=== PATIENT | female | born 1935 | race Caucasian/White ===

== ENCOUNTER 2023-12-06 09:57 | Day surgery (SDC) | payer OTHER, SELFPAY ==
[2023-11-29 10:26] VITALS: BMI 28.1
[2023-11-29 11:11] LABS: INR 1.22; PT 15.2 Sec (11.4-14.6)
[2023-11-29 11:28] LABS: ALT (SGPT) 18 U/L (0-35); AST (SGOT) 30 U/L (14-36); Albumin 4.5 g/dl (3.5-5.0); Alkaline Phosphatase 77 U/L (38-126); Blood Urea Nitrogen 27 mg/dl (7-17); Calcium 9.9 mg/dl (8.4-10.2); Carbon Dioxide 28 mmol/L (22-30); Chloride 100 mmol/L (98-107); Estimated Creatinine Clearance 42 ml/min; Glucose 74 mg/dl (70-99); Magnesium 2.3 mg/dl (1.6-2.3); Potassium 4.5 mmol/L (3.5-5.1); Sodium 138 mmol/L (135-145); Total Bilirubin 0.4 mg/dl (0.2-1.3); Total Protein 7.1 g/dl (6.3-8.2); eGFR > 60.00
[2023-11-29 11:33] LABS: % Basophils 1.2 % (0-2); % Eosinophils 2.4 % (0-6); % Immature Granulocytes 0.1 % (0-0.5); % Lymphocytes 20.1 % (20.5-51.1); % Monocytes 10.6 % (1.7-9.3); % Neutrophils 65.6 % (42.2-75.2); Absolute Basophils 0.1 10^3/uL (0-0.2); Absolute Eosinophils 0.2 10^3/uL (0-0.7); Absolute Lymphocytes 1.5 10^3/uL (1.2-3.4); Absolute Monocytes 0.8 10^3/uL (0.1-0.6); Hematocrit 39.2 % (37.0-47.0); Hemoglobin 12.2 g/dL (12.0-16.0); Mean Corp Hgb Conc. 31.1 g/dL (33.0-37.0); Mean Corpuscular Hgb 28.2 pg (27.0-31.0); Mean Corpuscular Volume 90.5 fL (81.0-99.0); Nucleated Red Blood Cells % 0 %; Platelet Count 242 10^3/uL (130-400); Red Blood Cell Count 4.33 10^6/uL (4.20-5.40); Red Cell Dist. Width 13.5 % (11.5-14.5); White Blood Cell Count 7.7 10^3/uL (4.8-10.8)
[2023-12-06] VITALS (12 sets, daily range): BP systolic 96–147; BP diastolic 46–65; BMI 29.8
--- NOTE | 2023-12-06 11:23 | PTCARENOTE ---
Patient in bay 8 in recovery ccl. Patient verbalizes c/o 12/10 chronic lower back pain. Patient repositioned in bed. Feet elevated on pillow. warm blanket applied to lower back. Patient verbalizes pain now at 8/10. Patient comfortable at this
time.
[2023-12-06] MEDS: VANCOCIN 200 IV (13:23)
--- NOTE | 2023-12-06 16:17 | PTCARENOTE ---
Rec'd Pt post PPM placement, drowsy but awakens easily to verbal stimuli, denies pain. L chest wall dsg D+I, pressure dsg over aquacell. VSS
--- NOTE | 2023-12-06 16:31 | CM ---
Chart reviewed. Patient is independent of ADLS, lives with her daughter and grandson in a [address], [address], 0 [address]. Patient is not current with VN, but is interested. Referral sent to [facility]. Plan is for the patient to return home with [facility]
--- NOTE | 2023-12-06 16:39 | ITS.CL.PACE ---
Hydrology Technician - Pacemaker Implant
Pacemaker Implant
Procedure Report:
PACEMAKER IMPLANT REPORT
Primary Care Provider: Dr Ryder Cherry
Primary nursery laborer: Dr Monica Gruber
Date of Procedure: December 06, 2023
Procedure:
Implantation of dual-chamber permanent pacemaker utilizing the left bundle branch for conduction system pacing
Removal of implanted loop recorder
Indication/Diagnosis:
Non-reversible symptomatic bradycardia due to sinus node dysfunction.
HISTORY:
She has paroxysmal atrial fibrillation and has had episodes of dizziness and even near syncope. Evaluation of her implanted loop recorder correlates conversion pauses to her symptoms. She requires calcium channel blockers, diltiazem. This was for
rate control of atrial fibrillation sometimes with rapid ventricular rates and for supraventricular tachycardia. She has been referred for permanent pacemaker implantation for treatment of symptomatic sick sinus syndrome.
After informed consent was obtained, 'time out' was called and confirmed, the patient was prepped and draped in a sterile fashion. Lidocaine with epi was used for local anesthesia. Central venous access was obtained via subclavian venipuncture. An
incision was made along the left chest and a pre-pectoral pocket was formed. Using a Seldinger technique and peel-away sheaths, the pacing leads were placed under fluoroscopic guidance.
Fluoroscopy was used to determine likely anatomic site for left bundle branch pacing. The Medtronic C315 sheath was used to deliver the Medtronic 3830 Selectsecure pacing lead with the helix exposed just exposed from the sheath tip during continuous
monitoring when pacemapping the septum during gentle clockwise rotation to obtain a paced QRS morphology of a W pattern in lead V1. Once the suspected optimal site was identified, lead deployment was performed with several rapid rotations as paced
QRS morphology was intermittently monitored until a paced QRS complex in lead V1 demonstrated development of an R wave (Qr). Reduction in pacing output resulted in a change in morphology, larger R wave.
Unipolar pacing impedance initially increased and then dropped by approximately 200 ohms suggesting it had reached the left ventricular subendocardial.
Stable VEgm injury current is present throughout lead position and at end of case.
Final unipolar pacing impedance is 1100 Ohms
Unipolar pacing threshold is stable at 1.5 V @ 0.4 ms.
Final conduction system paced QRS complex duration is 85 ms
LVAT is 77 ms and peak V5 -> peak V1 timing is 26 ms
Right atrial lead was placed at the RAA.
Once testing (see below) showed adequate and stable function, the leads were secured using the suture sleeves. The pocket was liberally irrigated with antibiotic solution. The leads were connected to the generator header and the leads and
generator were placed within the pocket. Fluoroscopy confirmed stable lead position. The pocket was closed in the typical fashion.
IMPLANTS:
Medtronic [id number], SN: [id number], Left Pectoral
RA: Medtronic 5076-45, SN: [id number], RAA
RV: Medtronic 3830 , SN:[id number], Interventricular septum at LBB
DEVICE TESTING:
Sensing: RA 1.8 mV, RV 10 mV
Capture: RA 0.6 V@0.4ms, RV 1.3 V@0.4ms
Ohms: RA 470, RV 980
FINAL PROGRAMMING
[place] Pacing: AAIR+ 50-130 ppm
COMPLICATIONS:
None
CONCLUSIONS:
1: Successful implant of dual chamber permanent pacemaker utilizing Left Bundle Branch conduction system capture for pacing. While it is possible she may eventually require ventricular pacing, at present active ventricular pacing is not indicated
and she will be programmed MVP mode.
RECOMMENDATIONS:
1. Post-op care (tele, CXR, IV abx)
2. In-Office wound check in 5-7 days
3. Resume diltiazem at outpatient dose (short acting diltiazem 60 mg twice daily) and reassess symptoms now that pacemaker is implanted. There can be consideration for using extended release version if she tolerates well.
Copy to:
Dr Ryder Cherry
Dr Monica Gruber
--- NOTE | 2023-12-06 16:51 | ITS.CL.IMPLP ---
Teacher Tutor - Implant Loop
Implant Loop
Procedure Report:
LINQ IMPLANTED MONITOR REMOVAL
Date of Procedure: December 06, 2023
Primary Care Provider: Dr Ryder Cherry
Primary radiosonde operator: Dr Monica Gruber
PROCEDURES:
1. Removal of implanted loop recorder
INDICATION FOR PROCEDURE:
Loop recorder has assisted in making the diagnosis of symptomatic sick sinus syndrome. Permanent pacemaker has been implanted. There is no longer need for loop recorder monitoring.
Lidocaine with epi was used for local anesthesia. An incision was made along the prior incision and the Linq monitor was carefully dissected from the pocket. The pocket was liberally irrigated with antibiotic solution. The pocket was closed in
the typical fashion.
COMPLICATIONS:
None
CONCLUSIONS:
1. Removal of implanted loop recorder.
RECOMMENDATIONS:
In-Office wound check in 7-14 days.
Copy to:
Dr Ryder Cherry
Dr Monica Gruber
[2023-12-06] MEDS: TYLENOL 650 MG PO ×2 (18:44→23:11)
--- NOTE | 2023-12-06 19:15 | PTCARENOTE ---
NSR. VSS. RA. OOB in chair. LUE in immobilizer s/p PPM. DTV. Assessment per nursing flowsheet
--- NOTE | 2023-12-06 19:21 | PTCARENOTE ---
Pt c/o L pacer site incisional pain, med with Tylenol 650 mg PO as ordered.
[2023-12-06] MEDS: CARDIZEM 60 MG PO (19:59)
[2023-12-06] MEDS: NORVASC 2.5 MG PO (21:47)
[2023-12-06] MEDS: PRAVACHOL 40 MG PO (21:47)
[2023-12-07 04:09] VITALS: BP 126/74
[2023-12-07] MEDS: TYLENOL 650 MG PO ×2 (04:12→09:17)
[2023-12-07 04:59] LABS: Hematocrit 32.5 % (37.0-47.0); Hemoglobin 10.7 g/dL (12.0-16.0); Mean Corp Hgb Conc. 32.9 g/dL (33.0-37.0); Mean Corpuscular Volume 88.1 fL (81.0-99.0); Mean Platelet Volume 12.2 fL (7.4-10.4); Platelet Count 188 10^3/uL (130-400); Red Blood Cell Count 3.69 10^6/uL (4.20-5.40); Red Cell Dist. Width 14.1 % (11.5-14.5); White Blood Cell Count 6.7 10^3/uL (4.8-10.8)
[2023-12-07 06:41] LABS: Blood Urea Nitrogen 17 mg/dl (7-17); Calcium 9.1 mg/dl (8.4-10.2); Carbon Dioxide 27 mmol/L (22-30); Chloride 108 mmol/L (98-107); Estimated Creatinine Clearance 54 ml/min; Glucose 96 mg/dl (70-99); Magnesium 2.1 mg/dl (1.6-2.3); Potassium 4.2 mmol/L (3.5-5.1); Sodium 136 mmol/L (135-145); eGFR > 60.00
[2023-12-07 06:46] VITALS: BP 124/58
--- NOTE | 2023-12-07 08:00 | PTCARENOTE ---
Rec'd pt AAOx3 from prev nsg shift. Pt reporting 7-8/10 L upper chest pain at her new PPM insertion site. PRN Tylenol administered as ordered. Pt w/no SOB or other pain noted. MD in to see pt & LUE immobilizer removed. This RN reiterated activity
restrictions for new PPM & pt verbalized her understanding. VS stable. Pt w/call munguia within reach & no addtl needs at this time. Plan of care ongoing.
--- NOTE | 2023-12-07 08:02 | W.PN.CARDCBS ---
Addendum entered and electronically signed by Chan López MD 12/07/23 11:25:
Patient seen and examined
Agree with FLY WORKER note and assessment
Agree with FLY WORKER plan
Examination:
Chest x-ray reviewed with stable lead positions
Appropriate atrial and ventricular sensing on telemetry
Site clean dry intact without hematoma
Cor regular
Lungs clear
Remainder of examination per FLY WORKER note
IMPRESSION:
SSS/Non reversible symptomatic bradycardia
PAF w/conversion pauses up to 3 seconds
s/p DC PPM implant with Linq explant, 12/06/23
SVT/Palpitations
HTN
HLD
Non obstructive CAD
mild YAMEL
PVD
MILES
LITTLE RIVER
IBS/Polyps
Raynauds
SS/OA/DDD
Chronic back pain
PLAN:
Tele- APacing with underlying sinus rhythm
Device site stable
Post CXR w/stable lead position, no pneumothorax
Activity restrictions reviewed
Resume diltiazem ER 60mg BID
[id number]- eliquis held post procedure- OK to resume this evening at usual time
Incision check next week at [facility]
Home today
Original Note:
Today's Communication / Plan
-
Incision check next week
home today
Impression / Plan
-
PCP: Ryder Cherry MD
CDY: Monica Gruber MD
88 y/o, PMH sig for PAF with episodes of dizziness and near syncope. A linq was implanted 01/2022 and a recent review showed AF with 3 second conversion pauses, which correlated with symptoms. Diltiazem was placed on hold.
Presented to EP lab, s/p DC PPM implant with linq implant.
IMPRESSION:
SSS/Non reversible symptomatic bradycardia
PAF w/conversion pauses up to 3 seconds
s/p DC PPM implant with Linq explant, 12/06/23
SVT/Palpitations
HTN
HLD
Non obstructive CAD
mild YAMEL
PVD
MILES
LITTLE RIVER
IBS/Polyps
Raynauds
SS/OA/DDD
Chronic back pain
PLAN:
Tele- APacing with underlying sinus rhythm
Device site stable
Post CXR w/stable lead position, no pneumothorax
Activity restrictions reviewed
Resume diltiazem ER 60mg BID
[id number]- eliquis held post procedure- OK to resume this evening at usual time
Incision check next week at [facility]
Home today
Progress Note - Distribution Spec
Subjective
Date of Service: December 07, 2023
Denies cp/palps/dyspnea
incisional pain relieved with tylenol
chronic lower back pain improves with repositioning overnight- takes percocet at home- has not requested any while here
oob ambulating
Objective
Labs:
12/07/23 04:10
12/07/23 05:47
Labs
Hgb 10.7 g/dL (12.0-16.0) L 12/07/23 04:10
Hct 32.5 % (37.0-47.0) L 12/07/23 04:10
Plt Count 188 10^3/uL (130-400) 12/07/23 04:10
PT 15.2 Sec (11.4-14.6) H 11/29/23 10:48
INR 1.22 11/29/23 10:48
Sodium 136 mmol/L (135-145) 12/07/23 05:47
Potassium 4.2 mmol/L (3.5-5.1) 12/07/23 05:47
BUN 17 mg/dl (7-17) 12/07/23 05:47
Creatinine 0.7 mg/dL (0.6-1.0) 12/07/23 05:47
Glucose 96 mg/dl (70-99) 12/07/23 05:47
Vital Signs and I&O:
Vital Signs
Temp Pulse Resp BP Pulse Ox
97.5 F 76 14 126/74 97
12/07/23 06:47 12/07/23 04:09 12/07/23 06:47 12/07/23 04:09 12/07/23 06:47
Vital Signs
Temp Pulse Resp BP Pulse Ox
97.5 F 76 14 126/74 97
12/07/23 06:47 12/07/23 04:09 12/07/23 06:47 12/07/23 04:09 12/07/23 06:47
Intake & Output
12/05/23 12/06/23 12/07/23 12/08/23
06:59 06:59 06:59 06:59
Intake Total 480 / 480
Output Total 350 / 350
Balance 130 / 130
Physical Exam
Physical Exam
AAOx3, MAEE 5/5
RRR S1 S2 no murmurs
CTA bilat, non labored
Left ACW aquacel dressing CDI, no ht/bleeding
Small linq site with steri strips intact, no ht/bleeding
soft abd, + bs
bilat extremities w/palpable distal pulses, no edema
[2023-12-07 08:06] VITALS: BMI 29.8
--- NOTE | 2023-12-07 08:55 | W.DS.TRANS ---
DC Summary - Dowel Maker
-
Discharge Instructions:
Sleep Apnea Risk Low
Discharge Diagnosis/Procedures Pacemaker implant, linq explant
Diet Low Cholesterol
Driving Restrictions No driving for 1 week
Bathing Restrictions OK to Shower
Instructions:
Stand-Alone Forms: DC Inst - Implanted Device
Changes to Home Medications: Yes
Discharge Medications:
DC Medications w/original date entered in Slide
coenzyme Q10 200 mg capsule (Co Q-10) 200 mg PO DAILY 01/19/22
ezetimibe 10 mg tablet 10 mg PO DAILY 01/19/22
pravastatin 40 mg tablet 40 mg PO HS 01/19/22
vitamins A,C,A-piqy-jtosuf 4,296 mcg-226 mg-90 mg capsule (PreserVision AREDS) 1 cap PO BID 01/19/22
cholecalciferol (vitamin D3) 125 mcg (5,000 unit) tablet (Vitamin D3) 125 mcg PO DAILY 11/24/23
oxycodone-acetaminophen 5 mg-325 mg tablet 1 tab PO Q6HPRN PRN pain 11/24/23
turmeric root extract 500 mg capsule 500 mg PO DAILY 11/24/23
amlodipine 2.5 mg tablet 2.5 mg PO HS 11/29/23
apixaban 5 mg tablet 5 mg PO BID 11/29/23
magnesium 500 mg tablet 1,000 mg PO HS 11/29/23
diltiazem HCl 60 mg capsule,extended release 12 hr 60 mg PO BID 12/06/23
Home Medication Changes
RESUME: diltiazem
Pending Results: No
[2023-12-07] MEDS: ZETIA 10 MG PO (09:16)
[2023-12-07] MEDS: CARDIZEM 60 MG PO (09:17)
[2023-12-07 11:17] VITALS: BP 123/58
--- NOTE | 2023-12-07 11:25 | PTCARENOTE ---
Pt discharged to home w/daughter providing transportation. Pt's IV line & telemetry pack removed. Pt left w/instructions & personal belongings from the room. Pt transported out by staff via wheelchair.
== END 2023-12-07 11:54 | disposition home or self-care (01) ==
LOC: CATH 09:57
PROVIDERS: Nurse Practitioner; ATTENDING PHYSICIAN Internal Medicine Cardiovascular Disease; FAMILY PHYSICIAN Family Medicine; OTHER PHYSICIAN Internal Medicine Cardiovascular Disease
DX: I49.5 Sick sinus syndrome (principal); Z09 Encounter for follow-up examination after completed treatment for conditions other than malignant neoplasm; I10 Essential (primary) hypertension; E78.5 Hyperlipidemia, unspecified; I25.10 Atherosclerotic heart disease of native coronary artery without angina pectoris; I65.29 Occlusion and stenosis of unspecified carotid artery; I47.10 Supraventricular tachycardia, unspecified; I48.0 Paroxysmal atrial fibrillation; G47.33 Obstructive sleep apnea (adult) (pediatric); Z86.010 Personal history of colon polyps; K58.9 Irritable bowel syndrome, unspecified; I73.00 Raynaud's syndrome without gangrene; G62.9 Polyneuropathy, unspecified; G43.909 Migraine, unspecified, not intractable, without status migrainosus; M48.00 Spinal stenosis, site unspecified; M19.90 Unspecified osteoarthritis, unspecified site; G89.29 Other chronic pain; H35.30 Unspecified macular degeneration; Z85.820 Personal history of malignant melanoma of skin; F41.9 Anxiety disorder, unspecified; F43.10 Post-traumatic stress disorder, unspecified; H91.93 Unspecified hearing loss, bilateral; Z87.891 Personal history of nicotine dependence; Z79.01 Long term (current) use of anticoagulants; R42 Dizziness and giddiness; R55 Syncope and collapse
CPT/HCPCS: 33208; 33286; 36415; 71045; 80048; 80053; 83735; 85025; 85027; 85610; 93005; C1769; C1785; C1887; C1892; C1898; Q9967

== ENCOUNTER → 2025-04-17 07:58 | Outpatient (REF) | payer OTHER, SELFPAY | LOC: RCS 07:58 | PROVIDERS: ATTENDING PHYSICIAN Internal Medicine Cardiovascular Disease; FAMILY PHYSICIAN Family Medicine | DX: R06.02 Shortness of breath (principal); R07.9 Chest pain, unspecified | CPT/HCPCS: 78452; 93017; A9500; J2785 ==

== ENCOUNTER → 2025-04-22 12:41 | Outpatient (REF) | payer OTHER, SELFPAY | LOC: HWRCS 12:41 | PROVIDERS: ATTENDING PHYSICIAN Internal Medicine Cardiovascular Disease; FAMILY PHYSICIAN Family Medicine | DX: R06.02 Shortness of breath (principal); R07.9 Chest pain, unspecified | CPT/HCPCS: 93306 ==